=== PATIENT | female | born 1975 | race Caucasian/White ===

== ENCOUNTER 2017-02-22 06:09 | Emergency (ER) | payer OTHER ==
[2017-02-22] MEDS ORDERED: ONDANSETRON HCL IV 4 MG/2 ML VIAL IV ONE (06:35)
[2017-02-22] MEDS ORDERED: KETOROLAC 30 MG/ML VIAL IVP ONE (06:35)
[2017-02-22] MEDS ORDERED: 0.9 % SODIUM CHLORIDE 1,000 ML BAG IV ONE (06:35)
--- NOTE | 2017-02-22 06:46 | Emergency Department Record ---
History of Present Illness - General Chief complaint: Flank Pain Stated complaint: FLANK PAIN Time Seen by Provider: 02/22/17 06:29 Source: Patient Mode of Arrival: Ambulatory Limitations: No limitations - History of Present Illness Initial comments: pt woke suddenly at 5am w l flank pain. she also has nausea and vomiting. she has never had anything like this before. her mother and sister both get kidney stones. MD Complaint: Other Onset/Timin -: Hour(s) Severity scale (1-10): 9 Quality: Dull Consistency: Constant Improves with: None Worsens with: None Associated Symptoms: Nausea/vomiting - Related Data Home Medications Medication Instructions Recorded Confirmed Last Taken No Home Med [NO HOME MEDS] 02/22/17 02/22/17 Unknown Allergies Allergy/AdvReac Type Severity Reaction Status Date / Time No Known Drug Allergies Allergy Verified 02/22/17 06:15 Travel Screening - Travel/Exposure Within Last 30 Days Have you traveled within the last 30 days?: No - Travel Symptoms Symptom Screening: None Review of Systems Reviewed: No additional complaints except as noted below Constitutional: Reports: As per HPI. Denies: Chills, Fever, Malaise, Night sweats, Weakness, Weight change Eyes: Reports: As per HPI. Denies: Eye discharge, Eye pain, Photophobia, Vision change ENT: Reports: As per HPI. Denies: Congestion, Dental pain, Ear pain, Epistaxis , Hearing loss, Throat pain Respiratory: Reports: As per HPI. Denies: Cough, Dyspnea, Hemoptysis, Stridor, Wheezes Cardiovascular: Reports: As per HPI. Denies: Arrhythmia, Chest pain, Dyspnea on exertion, Edema, Murmurs, Orthopnea, Palpitations, Paroxysmal nocturnal dyspnea, Rheumatic Fever, Syncope Endocrine: Reports: As per HPI. Denies: Fatigue, Heat or cold intolerance, Polydipsia, Polyuria Gastrointestinal: Reports: As per HPI, Abdominal pain, Nausea, Vomiting. Denies : Constipation, Diarrhea, Hematemesis, Hematochezia, Melena Genitourinary: Reports: As per HPI. Denies: Abnormal menses, Discharge, Dyspareunia, Dysuria, Frequency, Hematuria, Incontinence, Retention, Urgency Musculoskeletal: Reports: As per HPI. Denies: Arthralgia, Back pain, Gout, Joint swelling, Myalgia, Neck pain Skin: Reports: As per HPI. Denies: Bruising, Change in color, Change in hair/ nails, Lesions, Pruritus, Rash Neurological: Reports: As per HPI. Denies: Abnormal gait, Confusion, Headache, Numbness, Paresthesias, Seizure, Tingling, Tremors, Vertigo, Weakness Psychiatric: Reports: As per HPI. Denies: Anxiety, Auditory hallucinations, Depression, Homicidal thoughts, Suicidal thoughts, Visual hallucinations Hematological/Lymphatic: Reports: As per HPI. Denies: Anemia, Blood Clots, Easy bleeding, Easy bruising, Swollen glands Past Medical History - SOCIAL HISTORY Smoking Status: Never smoker - RESPIRATORY Hx Respiratory Disorders: No - CARDIOVASCULAR Hx Cardio Disorders: No - NEURO Hx Neuro Disorders: No - GI Hx GI Disorders: No - Hx Genitourinary Disorders: No - ENDOCRINE Hx Endocrine Disorders: No - MUSCULOSKELETAL Hx Musculoskeletal Disorders: No - PSYCH Hx Psych Problems: Yes Hx Depression: Yes - HEMATOLOGY/ONCOLOGY Hx Hematology/Oncology Disorders: No Family Medical History Any Significant Family History?: Yes Hx HTN: Father Hx Kidney Disease: Mother, Brother/Sister *Kidney Comment: stones Physical Exam - General General Appearance: Alert, Oriented x3, Cooperative, Mild distress - Head Head exam: Normal inspection - Eye Eye exam: Normal appearance, PERRL, EOMI Pupils: Normal accommodation - ENT ENT exam: Normal exam, Mucous membranes moist, Normal external ear exam, Normal orophraynx Ear exam: Normal external inspection. negative: External canal tenderness Nasal Exam: Normal inspection. negative: Discharge, Sinus tenderness Mouth exam: Normal external inspection, Tongue normal Teeth exam: Normal inspection. negative: Dental caries Throat exam: Normal inspection. negative: Tonsillar erythema, Tonsillar exudate - Neck Neck exam: Normal inspection, Full ROM. negative: Tenderness - Respiratory Respiratory exam: Normal lung sounds bilaterally. negative: Respiratory distress - Cardiovascular Cardiovascular Exam: Regular rate, Normal rhythm, Normal heart sounds - GI/Abdominal GI/Abdominal exam: Soft, Normal bowel sounds, Tenderness - Rectal Rectal exam: Deferred - exam: Deferred - Extremities Extremities exam: Normal inspection, Full ROM, Normal capillary refill. negative: Tenderness - Back Back exam: Reports: Normal inspection, Full ROM, Tenderness. Denies: Muscle spasm, Rash noted - Neurological Neurological exam: Alert, CN II-XII intact, Normal gait, Oriented X3 - Psychiatric Psychiatric exam: Normal affect, Normal mood - Skin Skin exam: Dry, Intact, Normal color, Warm Course Vital Signs 02/22/17 06:15 Temperature 97.6 F Pulse Rate 74 Respiratory 16 Rate Blood Pressure 114/73 Pulse Ox 100 - Reevaluation(s) Reevaluation #1: 02/22/17 06:51 care being assumed by dr burger. Disposition Forms: Patient Portal Access
[2017-02-22 06:49] LABS: BASO % 0.4 % (0-6); EOS % 2.4 % (0-6); GRAN % 53.4 % (47-80); HEMATOCRIT 38.8 % (35.0-47.0); HEMOGLOBIN 12.7 gm/dl (11.6-16.0); LYMPH % 38.3 % (16-45); MEAN CELL VOLUME 85.3 fl (81-97); MEAN CORPUSCULAR HEMOGLOBIN 27.9 pg (27-33); MEAN CORPUSCULAR HGB CONC 32.7 g/dl (32-36); MEAN PLATELET VOLUME 10.2 fl (7.4-10.4); MONO % 5.5 % (0-9); PLATELET COUNT 314 K/uL (130-400); RED BLOOD COUNT 4.55 M/uL (3.80-5.40); RED CELL DISTRIBUTION WIDTH 12.6 % (11.5-14.5); WHITE BLOOD COUNT W/O DIFF 6.7 K/uL (4.2-12.2)
[2017-02-22 06:54] LABS: URINE APPEARANCE CLEAR; URINE BILIRUBIN NEGATIVE (NEGATIVE); URINE BLOOD NEGATIVE (NEGATIVE); URINE COLOR YELLOW; URINE GLUCOSE (UA) NEGATIVE (NEGATIVE); URINE KETONE NEGATIVE (NEGATIVE); URINE LEUKOCYTE ESTERASE NEGATIVE (NEGATIVE); URINE NITRITE NEGATIVE (NEGATIVE); URINE PROTEIN NEGATIVE (NEGATIVE); URINE UROBILINOGEN 0.2 E.U./dL (0.20 - 1.00)
[2017-02-22 06:56] LABS: HCG,QUALITATIVE URINE NEGATIVE (NEGATIVE)
[2017-02-22 07:00] LABS: ANION GAP 8.9 (7-16); BLOOD UREA NITROGEN 13 mg/dL (7-17); CARBON DIOXIDE 25.1 mmol/L (22-30); CREATININE 0.9 mg/dL (0.52-1.04); EST GLOMERULAR FILTRATION RATE > 60 ml/min; GLUCOSE,RANDOM 128 mg/dL (70-110)
--- NOTE | 2017-02-22 07:13 | Emergency Department Record ---
History of Present Illness - General Chief complaint: Flank Pain Stated complaint: FLANK PAIN Time Seen by Provider: 02/22/17 06:29 Source: Patient Mode of Arrival: Ambulatory Limitations: No limitations - History of Present Illness Onset/Timin -: Hour(s) Severity scale (1-10): 9 Quality: Dull Consistency: Constant Improves with: None Worsens with: None Patient : No Associated Symptoms: Nausea/vomiting - Related Data Previous Rx's Medication Instructions Recorded Hydrocodone/Acetaminophen [[place] 1 each PO Q6H PRN #10 tablet 02/22/17 5-325 Tablet] Tamsulosin HCl [Flomax] 0.4 mg PO DAILY #15 cap.er.24h 02/22/17 Allergies Allergy/AdvReac Type Severity Reaction Status Date / Time No Known Drug Allergies Allergy Verified 02/22/17 06:15 Travel Screening - Travel/Exposure Within Last 30 Days Have you traveled within the last 30 days?: No - Travel Symptoms Symptom Screening: None Review of Systems Constitutional: Reports: As per HPI. Denies: Chills, Fever, Malaise, Night sweats, Weakness, Weight change Eyes: Reports: As per HPI. Denies: Eye discharge, Eye pain, Photophobia, Vision change ENT: Reports: As per HPI. Denies: Congestion, Dental pain, Ear pain, Epistaxis , Hearing loss, Throat pain Respiratory: Reports: As per HPI. Denies: Cough, Dyspnea, Hemoptysis, Stridor, Wheezes Cardiovascular: Reports: As per HPI. Denies: Arrhythmia, Chest pain, Dyspnea on exertion, Edema, Murmurs, Orthopnea, Palpitations, Paroxysmal nocturnal dyspnea, Rheumatic Fever, Syncope Endocrine: Reports: As per HPI. Denies: Fatigue, Heat or cold intolerance, Polydipsia, Polyuria Gastrointestinal: Reports: As per HPI, Abdominal pain, Nausea, Vomiting. Denies : Constipation, Diarrhea, Hematemesis, Hematochezia, Melena Genitourinary: Reports: As per HPI. Denies: Abnormal menses, Discharge, Dyspareunia, Dysuria, Frequency, Hematuria, Incontinence, Retention, Urgency Musculoskeletal: Reports: As per HPI. Denies: Arthralgia, Back pain, Gout, Joint swelling, Myalgia, Neck pain Skin: Reports: As per HPI. Denies: Bruising, Change in color, Change in hair/ nails, Lesions, Pruritus, Rash Neurological: Reports: As per HPI. Denies: Abnormal gait, Confusion, Headache, Numbness, Paresthesias, Seizure, Tingling, Tremors, Vertigo, Weakness Psychiatric: Reports: As per HPI. Denies: Anxiety, Auditory hallucinations, Depression, Homicidal thoughts, Suicidal thoughts, Visual hallucinations Hematological/Lymphatic: Reports: As per HPI. Denies: Anemia, Blood Clots, Easy bleeding, Easy bruising, Swollen glands Past Medical History - SOCIAL HISTORY Smoking Status: Never smoker - RESPIRATORY Hx Respiratory Disorders: No - CARDIOVASCULAR Hx Cardio Disorders: No - NEURO Hx Neuro Disorders: No - GI Hx GI Disorders: No - Hx Genitourinary Disorders: No - ENDOCRINE Hx Endocrine Disorders: No - MUSCULOSKELETAL Hx Musculoskeletal Disorders: No - PSYCH Hx Psych Problems: Yes Hx Depression: Yes - HEMATOLOGY/ONCOLOGY Hx Hematology/Oncology Disorders: No Family Medical History Any Significant Family History?: Yes Hx HTN: Father Hx Kidney Disease: Mother, Brother/Sister *Kidney Comment: stones Physical Exam - General Limitations: No limitations Course Vital Signs 02/22/17 06:15 Temperature 97.6 F Pulse Rate 74 Respiratory 16 Rate Blood Pressure 114/73 Pulse Ox 100 - Reevaluation(s) Reevaluation #1: 02/22/17 07:13 Labs reviewed and are grossly unremarkable for an acute process. CT imaging is pending at this time. Reevaluation #2: 02/22/17 08:00 CT Abdomen and Pelvis: Mild perinephric stranding and hydronephrosis secondary to a 3.5x2 mm calculus located at the ureteropelvic junction. Patient was updated on her CT imaging results and reports improvement in her pain symptoms. Will continue to monitor and reassess. Medical Decision Making - Lab Data Result diagrams: 02/22/17 06:20 02/22/17 06:20 Lab Results 02/22/17 02/22/17 02/22/17 Range/Units 06:20 06:20 06:45 WBC 6.7 (4.2-12.2) K/uL RBC 4.55 (3.80-5.40) M/uL Hgb 12.7 (11.6-16.0) gm/dl Hct 38.8 (35.0-47.0) % MCV 85.3 (81-97) fl MCH 27.9 (27-33) pg MCHC 32.7 (32-36) g/dl RDW 12.6 (11.5-14.5) % Plt Count 314 (130-400) K/uL MPV 10.2 (7.4-10.4) fl Gran % 53.4 (47-80) % Lymphocytes % 38.3 (16-45) % Monocytes % 5.5 (0-9) % Eosinophils % 2.4 (0-6) % Basophils % 0.4 (0-6) % Sodium 141 (136-145) mmol/L Potassium 3.3 L (3.5-5.1) mmol/L Chloride 107 (98-107) mmol/L Carbon Dioxide 25.1 (22-30) mmol/L Anion Gap 8.9 (7-16) BUN 13 (7-17) mg/dL Creatinine 0.9 (0.52-1.04) mg/dL Estimated GFR > 60 ml/min Random Glucose 128 H (70-110) mg/dL Calcium 8.4 L (8.5-10.1) mg/dL Urine Color Yellow Urine Appearance Clear Urine pH 5.5 (5.0-8.0) Ur Specific [place] 1.025 (1.002-1.030) Urine Protein Negative (NEGATIVE) Urine Glucose (UA) Negative (NEGATIVE) Urine Ketones Negative (NEGATIVE) Urine Blood Negative (NEGATIVE) Urine Nitrite Negative (NEGATIVE) Urine Bilirubin Negative (NEGATIVE) Urine Urobilinogen 0.2 (0.20 - 1.00) E.U./dL Ur Leukocyte Esterase Negative (NEGATIVE) Urine HCG, Qual Negative (NEGATIVE) Disposition Disposition: Discharge Clinical Impression: Ureteral calculus Disposition: Home, Self-Care Condition: (2) Stable Instructions: Kidney Stones (ED) Additional Instructions: Return to ED if your symptoms worsen or if you have any concerns. [place] and Flomax as directed. Follow-up with Dr. Villalobos in the [facility] next week, Clinic will contact you for an appointment. Prescriptions: Hydrocodone/Acetaminophen [[place] 5-325 Tablet] 1 each PO Q6H PRN #10 tablet PRN Reason: Pain - Moderate (5-7) Tamsulosin HCl [Flomax] 0.4 mg PO DAILY #15 cap.er.24h Forms: Patient Portal Access Time of Disposition: 08:04
[2017-02-22] MEDS ORDERED: MORPHINE SULFATE 5 MG/ML PFS IVP ONE (07:31)
--- NOTE | 2017-02-22 09:20 | CT SCAN REPORT ---
EXAM: CT OF THE ABDOMEN AND PELVIS WITHOUT CONTRAST HISTORY: LEFT FLANK PAIN FOR THE PAST TWO HOURS. TECHNIQUE: Axial CT scan of the abdomen and pelvis was performed without oral or IV contrast. A preliminary report was provided by [facility]. Comparison: None. FINDINGS: There are a couple small calcifications in the right kidney consistent with currently nonobstructing intrarenal calculi on the right. None are seen within the left kidney, however, there is mild hydronephrosis and hydroureter on the left with the mildly dilated left ureter followed down into the pelvis where it leads to a small calcification at the left UVJ consistent with a distal left ureteral calculus approximately 2.7 mm in size causing a component of obstruction of the distal left ureter. No hydronephrosis or hydroureter is seen on the right with no right ureteral calculus evident and no actual bladder calculus seen. No calcified gallstones are seen within the gallbladder. There is a very small hiatal hernia. Evaluation of the bowel and viscera are very limited without oral or IV contrast. Given this limitation, no definite hepatic, splenic, adrenal, pancreatic, or renal mass identified. No appendicitis identified. The uterus is tilted slightly towards the right. The lung bases are clear. No free intraperitoneal air or free intraperitoneal fluid evident. Mild degenerative change in the facets of the lower lumbar spine. There is some narrowing of the L1-L2 and L5-S1 interspaces. Minor thoracolumbar curve to the right may be related to some spasm. IMPRESSION: 1. APPEARANCE CONSISTENT WITH A SMALL DISTAL LEFT URETERAL CALCULUS ABOUT 2.7 MM IN SIZE CAUSING A COMPONENT OF OBSTRUCTION ON THE LEFT. 2. THERE ARE A COUPLE NONOBSTRUCTING INTRARENAL CALCULUS IN THE RIGHT KIDNEY. 3. SMALL HIATAL HERNIA. 4. SOME DEGENERATIVE CHANGE IN THE LUMBAR SPINE. JOB NUMBER: [id number] MTDD
== END 2017-02-22 10:28 | disposition home or self-care (01) ==
LOC: ER 06:09
DX: N13.2 Hydronephrosis with renal and ureteral calculous obstruction (principal); R11.2 Nausea with vomiting, unspecified
CPT/HCPCS: 99284 ×2; 96374; 96375; 96361; 85025; 80048; 81003; 81025; 74176; J1885; J2405; J2270; 96360; J7030